=== PATIENT | male | born 1950 | race Hispanic/Latino ===

== ENCOUNTER 2017-05-28 10:23 | Emergency (ER) | payer MEDICARE ==
[2017-05-28 12:05] LABS: Basophils # (Auto) 0.1 K/mm3 (0.0-0.1); Basophils % (Auto) 0.7 % (0.0-1.8); Eosinophils % (Auto) 0.5 % (0.0-4.3); Hematocrit 36.2 % (35.5-45.6); Hemoglobin 12.1 gm/dl (11.8-15.2); Lymphocytes # (Auto) 2.1 K/mm3 (1.2-5.4); Lymphocytes % (Auto) 26.8 % (13.4-35.0); Mean Corpuscular HGB Conc 33 % (32-34); Mean Corpuscular Hemoglobin 31 pg (28-32); Mean Corpuscular Volume 92 fl (84-94); Monocytes # (Auto) 0.9 K/mm3 (0.0-0.8); Monocytes % (Auto) 11.3 % (0.0-7.3); Platelet Count 184 K/mm3 (140-440); Red Blood Count 3.95 M/mm3 (3.65-5.03); Red Cell Distribution Width 15.9 % (13.2-15.2)
--- NOTE | 2017-05-28 12:06 | Emergency Department Report ---
ED N/V/D HPI - General Chief complaint: Nausea/Vomiting/Diarrhea Stated complaint: DIARRHEA Time Seen by Provider: 05/28/17 12:02 Source: patient Mode of arrival: Ambulatory Limitations: No Limitations - History of Present Illness Initial comments: PT NOT IN ROOM YET 1205P Pt is a 67 yo male who presents with c/o diarrhea x 1 month. Pt states he has been having intermittent diarrhea over this time 3-4 episodes but no hematochezia. Pt states he fell this am without warning or complaint of feeling bad prior to the fall. Pt denied any syncope, chest pain, diaphoresis, shob, or weakness. Pt states he used his hands to protect himself. pt noted no pain in his wrists. Pt denied any head strike or LOC. Pt state he was told to come here to have his heart checked. - Related Data Home Medications Medication Instructions Recorded Confirmed Last Taken AtorvaSTATin [Lipitor] 10 mg PO QHS 05/28/17 05/28/17 05/28/17 Divalproex Sodium [Depakote] 500 mg PO BID 05/28/17 05/28/17 05/28/17 Metformin HCl [Glucophage] 1,000 mg PO BID 05/28/17 05/28/17 05/28/17 risperiDONE [RisperiDONE] 3 mg PO BID 05/28/17 05/28/17 05/28/17 Allergies Allergy/AdvReac Type Severity Reaction Status Date / Time lithium Allergy Unknown Verified 05/28/17 11:39 quetiapine [From Seroquel] Allergy Unknown Verified 05/28/17 11:39 ED Review of Systems ROS: Stated complaint: DIARRHEA Other details as noted in HPI Constitutional: denies: diaphoresis, weakness Eyes: denies: eye discharge ENT: denies: ear pain Respiratory: denies: cough, shortness of breath, SOB with exertion Cardiovascular: denies: chest pain, palpitations, syncope Endocrine: denies: excessive sweating Gastrointestinal: diarrhea. denies: abdominal pain, nausea, vomiting Neurological: denies: headache, weakness, paresthesias Psychiatric: denies: suicidal thoughts Hematological/Lymphatic: denies: easy bleeding ED Past Medical Hx - Past Medical History Hx Diabetes: Yes Hx Psychiatric Treatment: Yes (bipolar) Additional medical history: hearing loss right ear - Surgical History Past Surgical History?: No - Social History Smoking Status: Never Smoker Substance Use Type: None - Medications Home Medications: Home Medications Medication Instructions Recorded Confirmed Last Taken Type AtorvaSTATin [Lipitor] 10 mg PO QHS 05/28/17 05/28/17 05/28/17 History Divalproex Sodium [Depakote] 500 mg PO BID 05/28/17 05/28/17 05/28/17 History Metformin HCl [Glucophage] 1,000 mg PO BID 05/28/17 05/28/17 05/28/17 History risperiDONE [RisperiDONE] 3 mg PO BID 05/28/17 05/28/17 05/28/17 History ED Physical Exam - General Limitations: No Limitations - Head Head exam: Present: atraumatic - Eye Eye exam: Present: normal appearance, PERRL, EOMI - ENT ENT exam: Present: mucous membranes dry - Neck Neck exam: Present: normal inspection - Respiratory Respiratory exam: Present: normal lung sounds bilaterally. Absent: respiratory distress, wheezes, rales, rhonchi - Cardiovascular Cardiovascular Exam: Present: regular rate, normal rhythm, normal heart sounds - GI/Abdominal GI/Abdominal exam: Present: soft. Absent: distended, tenderness, guarding, rebound, rigid, normal bowel sounds - Rectal Rectal exam: Present: deferred - Extremities Exam Extremities exam: Present: normal inspection, full ROM. Absent: tenderness, pedal edema - Back Exam Back exam: Present: normal inspection - Neurological Exam Neurological exam: Present: alert, oriented X3, CN II-XII intact, normal gait - Psychiatric Psychiatric exam: Present: normal affect - Skin Skin exam: Present: warm, dry (abrasion right proximal palm) ED Course Vital Signs 05/28/17 05/28/17 05/28/17 11:33 14:16 14:31 Temperature 97.8 F Pulse Rate 95 H 62 Respiratory 18 17 23 Rate Blood Pressure 81/54 151/79 O2 Sat by Pulse 97 95 Oximetry 05/28/17 05/28/17 15:00 15:31 Temperature Pulse Rate 62 Respiratory 20 Rate Blood Pressure 145/77 145/77 O2 Sat by Pulse 96 96 Oximetry ED Medical Decision Making - Lab Data Result diagrams: 05/28/17 11:43 05/28/17 11:43 - EKG Data EKG shows normal: sinus rhythm Rate: normal (62) - EKG Data 05/28/17 16:14 first EKG 1202p-[id number] prolonged qt repeat ekg 1456: nsr rate 79; no acute st elevation or depression Critical care attestation.: If time is entered above; I have spent that time in minutes in the direct care of this critically ill patient, excluding procedure time. ED Disposition Clinical Impression: Diarrhea, Fall Disposition: DC- TO HOME OR SELFCARE Is pt being admited?: No Does the pt Need Aspirin: No Condition: Stable Instructions: Acute Diarrhea (ED) Additional Instructions: return sooner if worse or if further concerns drink plenty of fluids Referrals: [facility] [Outside] - 3-5 Days PRIMARY CARE, [Primary Care Provider] - KARTHIKEYAN Time of Disposition: 16:16
[2017-05-28 12:27] LABS: Alanine Aminotransferase 8 units/L (7-56); Albumin 3.2 g/dL (3.9-5); BUN/Creatinine Ratio 11; Blood Urea Nitrogen 8 mg/dL (9-20); Calcium 8.6 mg/dL (8.4-10.2); Hemolysis Index 4; Lipase 19 units/L (13-60)
[2017-05-28] MEDS ORDERED: NACL 0.9% 1000 ML 1,000 ML IV ONE (12:50)
[2017-05-28] MEDS ORDERED: TENIVAC IM ONE (13:04)
[2017-05-28 16:14] VITALS: BP 153/81
[2017-05-28 16:54] LABS: Bilirubin,Urine NEG (Negative); Blood,Urine NEG (Negative); Color,Urine Yellow (Yellow); Mucus,Urine 1+ /HPF; Protein,Urine <15 mg/dL mg/dL (Negative)
== END 2017-05-28 19:10 | disposition home or self-care (01) ==
LOC: ED 10:23
DX: R19.7 Diarrhea, unspecified (principal); E11.9 Type 2 diabetes mellitus without complications; Z88.8 Allergy status to other drugs, medicaments and biological substances
CPT/HCPCS: 36415; 80053; 81001; 82962; 83690; 84484; 85025; 90471; 90714; 93005; 93010; 96360; 99283; J7030; 96372

== ENCOUNTER 2017-09-20 10:54 | Outpatient (CLI) | payer MEDICARE | END 2017-09-20 10:55 | disposition home or self-care (01) | LOC: LABHHL 10:54 | DX: C18.9 Malignant neoplasm of colon, unspecified (principal); E11.9 Type 2 diabetes mellitus without complications; E78.00 Pure hypercholesterolemia, unspecified; F32.9 Major depressive disorder, single episode, unspecified; F41.9 Anxiety disorder, unspecified; Z87.891 Personal history of nicotine dependence; Z88.8 Allergy status to other drugs, medicaments and biological substances; Z88.2 Allergy status to sulfonamides | CPT/HCPCS: 36415; 88271 ==